=== PATIENT | female | born 1985 | race Two or more races ===

== ENCOUNTER 2017-11-19 07:34 | Inpatient (IN) | payer BC ==
[~2017-11-19] VITALS: Ht 162.6 cm; Wt 76.7 kg
[2017-11-19] VITALS (7 sets, daily range): BP systolic 93–115; BP diastolic 43–66
[2017-11-19] MEDS ORDERED: PREN-55 MT (07:41)
[2017-11-19] MEDS ORDERED: BUTORPHANOL TARTRATE 2 MG/ML VIAL IM NR (07:46)
[2017-11-19] MEDS ORDERED: DEXT 5%/LR + PITOCIN 20UNITS/L 1,000 ML IV SCH ×2 (08:06→08:39)
[2017-11-19] MEDS ORDERED: LIDOCAINE HCL 1% 20ML VIAL (Pyxis) INJ INFIL SCH (08:15)
[2017-11-19 08:27] LABS: BASOPHILS % 0.3 % (0.0-2.0); EOSINOPHILS % 1.3 % (0.0-5.0); HEMATOCRIT. 37.8 % (36.0-48.0); HEMOGLOBIN. 12.6 g/dL (12.0-16.0); LYMPHOCYTES % 28.6 % (20.0-50.0); MEAN CORPUSCULAR HEMOGLOBIN 27.3 pg (28.0-32.0); MEAN CORPUSCULAR VOLUME 82.3 fL (81.0-99.0); MEAN PLATELET VOLUME 9.8 fl (7.4-10.4); MONOCYTES % 6.8 % (2.0-8.0); PLATELET 198 x1000/uL (130-400); RED CELL DISTRIBUTION WIDTH 15.1 % (11.6-14.6)
[2017-11-19 08:42] LABS: PARTIAL THROMBOPLASTIN TIME 27.5 sec (23.4-31.0)
[2017-11-19] MEDS ORDERED: RHO(D) IMMUNE GLOBULIN 300 MCG/SYR IM PRN (08:45)
[2017-11-19] MEDS ORDERED: BENZOCAINE/LANOLIN/ALOE VERA SPRAY TOP PRN (08:45)
[2017-11-19] MEDS ORDERED: BISACODYL 10MG SUPP PR PRN (08:45)
[2017-11-19] MEDS ORDERED: DIPHENHYDRAMINE 25MG CAPSULE PO PRN (08:45)
[2017-11-19] MEDS ORDERED: IBUPROFEN 400MG TABLET PO PRN (08:45)
[2017-11-19] MEDS ORDERED: LANOLIN OINT 0.25 GM TUBE TOP PRN (08:45)
[2017-11-19] MEDS ORDERED: GLYCERIN/WITCH HAZEL LEAF MEDICATED PAD TOP PRN (08:45)
[2017-11-19] MEDS ORDERED: ACETAMINOPHEN WITH CODEINE 300/30MG TABLET PO PRN ×2 (08:45)
[2017-11-19] MEDS ORDERED: HEMORRHOIDAL SUPP PR PRN (08:45)
[2017-11-19 08:46] LABS: CHLORIDE 103 mEq/L (98-107)
[2017-11-19 10:22] LABS: HEPATITIS B SURFACE ANTIGEN NEGATIVE
[2017-11-19] MEDS ORDERED: INFLUENZA VIRUS VACCINE(AFLURIA) 0.5ML SYR IM ONE (13:00)
[2017-11-19] MEDS ORDERED: TETANUS, DIPHTHERIA, PERTUSSIS VAC/PF 0.5ML (>7YR OLD) IM ONE (13:00)
[2017-11-19 17:00] LABS: BASOPHILS % 0.1 % (0.0-2.0); EOSINOPHILS % 0.8 % (0.0-5.0); HEMATOCRIT. 32.4 % (36.0-48.0); HEMOGLOBIN. 10.7 g/dL (12.0-16.0); LYMPHOCYTES % 12.2 % (20.0-50.0); MEAN CORPUSCULAR HEMOGLOBIN 27.2 pg (28.0-32.0); MEAN CORPUSCULAR VOLUME 82.7 fL (81.0-99.0); MEAN PLATELET VOLUME 9.6 fl (7.4-10.4); MONOCYTES % 5.1 % (2.0-8.0); NEUTROPHILS % 81.8 % (40.0-76.0); PLATELET 190 x1000/uL (130-400); RED BLOOD CELL COUNT 3.92 mill/uL (4.2-5.4); RED CELL DISTRIBUTION WIDTH 15.3 % (11.6-14.6)
[2017-11-19] MEDS: PRENATAL VIT/FE FUMARATE/FA TABLET PO SCH (18:38)
[2017-11-19] MEDS: DOCUSATE SODIUM 100MG CAPSULE PO SCH (21:27)
[2017-11-20 04:00] VITALS: BP 112/54
[2017-11-20 07:36] VITALS: BP 107/60
[2017-11-20] MEDS: FERROUS SULFATE 325MG TABLET PO SCH ×3 (08:41→17:30)
[2017-11-20] MEDS: PRENATAL VIT/FE FUMARATE/FA TABLET PO SCH (08:41)
[2017-11-20 16:04] VITALS: BP 106/52
[2017-11-20] MEDS: DOCUSATE SODIUM 100MG CAPSULE PO SCH (21:00)
[2017-11-20 22:00] VITALS: BP 105/63
[2017-11-21 05:31] VITALS: BP 106/72
[2017-11-21] MEDS: FERROUS SULFATE 325MG TABLET PO SCH (08:53)
[2017-11-21] MEDS: PRENATAL VIT/FE FUMARATE/FA TABLET PO SCH (08:54)
== END 2017-11-21 14:00 | disposition home or self-care (01) | DRG 769 ==
LOC: OBSVTOIN 07:34 → L&D 07:34 → OBSVTOIN 07:35 → INTOOBSV 07:35 → 7EST PP/OB 10:00
PROVIDERS: ADMIT Specialist; ATTEND Specialist
PROC: 0UQG0ZZ Repair Vagina, Open Approach (ICD-10-PCS; principal; 2017-11-19)
PROC: 30233S1 Transfusion of Nonautologous Globulin into Peripheral Vein, Percutaneous Approach (ICD-10-PCS; 2017-11-20)
DX: O73.0 Retained placenta without hemorrhage (principal); O71.4 Obstetric high vaginal laceration alone; D64.9 Anemia, unspecified; O90.81 Anemia of the puerperium; Z98.891 History of uterine scar from previous surgery; O26.893 Other specified pregnancy related conditions, third trimester; Z67.31 Type AB blood, Rh negative
CPT/HCPCS: 36415; 80053; 84550; 85025; 85384; 85610; 85730; 86592; 86703; 86762; 86850; 86870; 86900; 87340; 90384; J0595; J2590; J3490